=== PATIENT | male | born 1985 | race Caucasian/White ===

== ENCOUNTER 2018-09-22 14:05 | Inpatient (IN) | payer MEDICAID, OTHER ==
[~2018-09-22] VITALS: Ht 190.5 cm; Wt 74.8 kg
[2018-09-22] VITALS (14 sets, daily range): BP systolic 108–164; BP diastolic 58–101
--- NOTE | 2018-09-22 14:12 | NUR ---
PT TRAY FROM [facility]; PER REPORT BS ON SCENE WAS =HI; PT IS AAOX4, DROWSY BUT AROUSABLE, RESPIRATIONS EVEN AND UNLABORED, NO SOB, PT ON MONITOR, NAD NOTED, VSS, PENDING ER PROVIDER EVAL
[2018-09-22] MEDS ORDERED: IV NS 0.9% 1,000 ML BAG IV ONE (14:30)
[2018-09-22 14:36] LABS: BASOPHILS # (AUTO) 0.1 /CMM (0.0-0.2); EOSINOPHILS % (AUTO) 0.3 % (0.0-6.0); HEMATOCRIT 47 % (39-51); HEMOGLOBIN 15.1 g/dL (13.5-17.5); LYMPHOCYTES # (AUTO) 1.3 /CMM (0.8-4.8); MEAN CORPUSCULAR HGB CONC 32 g/dl (31.0-36.0); MEAN CORPUSCULAR VOLUME 100 fL (80-96); MONOCYTES # (AUTO) 0.3 /CMM (0.1-1.30); MONOCYTES % (AUTO) 3.5 % (2.0-12.0); NEUTROPHILS # (AUTO) 6.4 /CMM (1.8-8.9); NEUTROPHILS % (AUTO) 79.2 % (43.0-81.0); PLATELET COUNT (AUTO) 279 /CMM (150-450); RED BLOOD CELL COUNT(AUTO) 4.74 MIL/uL (4.5-6.0)
[2018-09-22 14:43] LABS: ABG BASE EXCESS -18.3 mmol/L; ABG OXYGEN SATURATION 90.4 % (92.0-98.5); ABG PCO2 22.8 mmHg (35.0-45.0); ABG PH 7.178 (7.350-7.450); ABG PO2 71.9 mmHg (75.0-100.0); COHb 0.8 % (0.5-1.5); MetHb 0.6 % (0.0-1.5); O2Hb 89.1 % (94.0-97.0); VENT MODE, BG RA
[2018-09-22 14:46] LABS: CALCIUM, SERUM 9.7 mg/dL (8.5-10.1); CREATININE 1.5 mg/dL (0.6-1.3); POTASSIUM 5.9 mmol/L (3.5-5.1)
[2018-09-22 14:47] LABS: MAGNESIUM 2.2 mg/dL (1.8-2.4); PHOSPHORUS 5.7 mg/dL (2.5-4.9)
[2018-09-22] MEDS ORDERED: METO-357 PO (15:00)
[2018-09-22] MEDS ORDERED: IV NS 0.9% 1,000 ML IV ONE (15:00)
[2018-09-22] MEDS ORDERED: IV LR 1000 ML 1,000 ML IV ONE (15:00)
[2018-09-22] MEDS ORDERED: ASPI-1152 PO (15:00)
[2018-09-22] MEDS ORDERED: INSULIN REGULAR, HUMAN 100 UNIT in IV NS 0.9% 99 ML IV PRN ×4 (15:00→16:30)
[2018-09-22] MEDS ORDERED: LISI-603 PO (15:00)
[2018-09-22] MEDS ORDERED: GABA-534 PO (15:00)
[2018-09-22] MEDS ORDERED: ATOR80TA PO (15:00)
[2018-09-22] MEDS ORDERED: INSU100I26 SQ (15:00)
[2018-09-22] MEDS ORDERED: INSU100I34 SQ (15:00)
--- NOTE | 2018-09-22 15:46 | NUR ---
INSULIN DRIP STARTED, PER DR ALONSO, 0.1U/HR PER KG. STARTED ON 6.7U/HR, BS=HI
[2018-09-22 15:56] LABS: APPEARANCE,URINE Clear (CLEAR); BILIRUBIN,URINE Negative (NEGATIVE); BLOOD, URINE Negative Ery/uL (NEGATIVE); COLOR,URINE Yellow (YELLOW); KETONES,URINE 80 (NEGATIVE); LEUKOCYTE ESTERASE ,URINE Negative (NEGATIVE); NITRITE, URINE Negative (NEGATIVE); PROTEIN,URINE Negative (NEGATIVE); UGLUCOSE 500 MG/DL mg/dL (NEGATIVE); UROBILINOGEN,URINE 0.2 EU/dL (0.2)
--- NOTE | 2018-09-22 16:17 | NUR ---
GOT BED 256
--- NOTE | 2018-09-22 16:23 | NUR ---
REPORT GIVEN TO WILMER PRUITT FOR OLGA
[2018-09-22] MEDS ORDERED: ACETAMINOPHEN 325 MG TABLET PO PRN (16:30)
[2018-09-22] MEDS ORDERED: ONDANSETRON HCL/PF 4 MG/2 ML VIAL IVP PRN (16:30)
--- NOTE | 2018-09-22 16:34 | NUR ---
PT TRANSFERRED TO ICU VIA ACLS PROTOCOL
--- NOTE | 2018-09-22 16:45 | NUR ---
RN NOTES RECEIVED PT FROM ER IN ROOM 256, A/Ox3, PT REFUSED TO ANSWER QUESTIONS AT TIMES , RESPIRATION EVEN AND UNLABORED, ON RA, INSULIN GTT RUNNING PER PROTOCOL , CONTINUE TO MONITOR BLOOD GLUCOSE, R HAND IV SITE G 20 , CLEAN, DRY AND INTACT, NS AT 250CC/HR RUNNING VIA R HAND IV . WOUNDS AND SCABS NOTED ON JOHNNA LOWER EXTRIMITES , PICTURE TAKE AND PLACED IN THE CHART, PT WITHDRAWS TO TOUCH ON JOHNNA LOWER EXTREMITIES, PT STATED IS PAINFUL AND SENSITIVE TO TOUCH , HURL SHAKER AWARE . SR UP x3, CALL LIGHT WITHIN EASY REACH ,BED LOCKED AND IN LOWEST POSITION CONTINUE TO MONITOR.
[2018-09-22] MEDS: IV NS 0.9% 1,000 ML IV SCH ×2 (17:22→20:30)
--- NOTE | 2018-09-22 18:00 | NUR ---
RN NOTES PT REFUSED TO HAVE LE INSERTED AT THIS TIME .
--- NOTE | 2018-09-22 19:00 | NUR ---
RN NOTES INSULIN GTT AT 5.56 UNITS/HR AT THIS TIME, PT STABLE, WILL ENDOSE TO SERVICE CREW LEADER NURSE FOR CONTINUITY OF CARE
--- NOTE | 2018-09-22 20:00 | NUR ---
ULTRASONIC SOLDERER - NOTES - RECEIVED PT IN BED 256, A/Ox3 DROWSY, PT REFUSED TO ANSWER QUESTIONS AT TIMES , RESPIRATION EVEN AND UNLABORED, ON RA, INSULIN GTT RUNNING PER PROTOCOL , CONTINUE TO MONITOR BLOOD GLUCOSE Q1H, R HAND IV SITE G 20 , CLEAN, DRY AND INTACT, NS AT 125 ML/HR RUNNING VIA R HAND IV. WOUNDS AND SCABS NOTED ON JOHNNA LOWER EXTRIMITES. PT WITHDRAWS TO TOUCH ON JOHNNA LOWER EXTREMITIES, SR UP x3, CALL LIGHT WITHIN EASY REACH ,BED LOCKED AND IN LOWEST POSITION CONTINUE TO MONITOR.
[2018-09-22] MEDS: BLOOD SUGAR DIAGNOSTIC 1 EACH STRIP IN SCH ×3 (20:03→22:02)
[2018-09-22] MEDS: ENOXAPARIN SODIUM 40 MG/0.4 ML DISP.SYRIN SQ SCH (20:30)
[2018-09-22 20:41] LABS: CALCIUM, SERUM 8.2 mg/dL (8.5-10.1); CREATININE 1.2 mg/dL (0.6-1.3); MAGNESIUM 1.9 mg/dL (1.8-2.4); PHOSPHORUS 2.6 mg/dL (2.5-4.9)
[2018-09-22] MEDS ORDERED: SULFAMETH/TRIMETH 800/160 MG 1 UDTAB TABLET PO SCH (21:00)
[2018-09-22] MEDS ORDERED: NORMAL SALINE FLUSH 10 ML SYR IV SCH (21:00)
--- NOTE | 2018-09-22 21:00 | NUR ---
PT REFUSES F/C, CAN USE URINAL, GOOD URINE OUTPUT, CLEAR YELLOW
[2018-09-22] MEDS: ATORVASTATIN 40 MG TABLET PO SCH (21:12)
[2018-09-22] MEDS: DOXYCYCLINE HYCLATE (100 MG) 100 MG TABLET PO SCH (21:13)
--- NOTE | 2018-09-22 22:00 | NUR ---
BLOOD GLUCOSE 137, PER ORDER, WILL ORDER STAT BMP TO CHECK ANION GAP, NÉSTOR CAST NOTIFIED
[2018-09-22 22:30] LABS: CALCIUM, SERUM 8.3 mg/dL (8.5-10.1); CREATININE 1.2 mg/dL (0.6-1.3)
--- NOTE | 2018-09-22 22:48 | NUR ---
ANION GAP 14, PER DR CAST, TURN OFF INSULIN GTT, AND START ON CCHO DIET, ACCU Q4 MILD SLIDING SCALE
[2018-09-23] VITALS (45 sets, daily range): BP systolic 88–144; BP diastolic 46–90
[2018-09-23] MEDS: BLOOD SUGAR DIAGNOSTIC 1 EACH STRIP IN SCH ×6 (00:09→21:26)
[2018-09-23 00:59] LABS: CALCIUM, SERUM 8.2 mg/dL (8.5-10.1); CREATININE 1.2 mg/dL (0.6-1.3); MAGNESIUM 1.7 mg/dL (1.8-2.4); PHOSPHORUS 3.2 mg/dL (2.5-4.9); POTASSIUM 4.2 mmol/L (3.5-5.1)
[2018-09-23] MEDS ORDERED: DEXTROSE 50%-WATER 50 ML DISP.SYRIN IV PRN ×3 (01:00→09:30)
[2018-09-23] MEDS ORDERED: INSULIN REGULAR, HUMAN 100 UNIT/ML 3 ML VIAL ONE (01:58)
[2018-09-23] MEDS: INSULIN REGULAR, HUMAN 100 UNIT/ML 3 ML VIAL SQ PRN ×6 (02:02→21:25)
[2018-09-23] MEDS: IV NS 0.9% 1,000 ML IV SCH (04:30)
[2018-09-23 04:45] LABS: BASOPHILS # (AUTO) 0.1 /CMM (0.0-0.2); BASOPHILS % (AUTO) 1.2 % (0.0-2.0); EOSINOPHILS % (AUTO) 2.5 % (0.0-6.0); HEMATOCRIT 40 % (39-51); HEMOGLOBIN 13.6 g/dL (13.5-17.5); LYMPHOCYTES # (AUTO) 2.2 /CMM (0.8-4.8); LYMPHOCYTES % (AUTO) 30.6 % (20.0-44.0); MEAN CORPUSCULAR HGB CONC 34 g/dl (31.0-36.0); MEAN CORPUSCULAR VOLUME 93 fL (80-96); MONOCYTES # (AUTO) 0.4 /CMM (0.1-1.30); MONOCYTES % (AUTO) 5.6 % (2.0-12.0); NEUTROPHILS # (AUTO) 4.4 /CMM (1.8-8.9); NEUTROPHILS % (AUTO) 60.1 % (43.0-81.0); PLATELET COUNT (AUTO) 259 /CMM (150-450); WHITE BLOOD COUNT (AUTO) 7.3 K/uL (4.3-11.0)
[2018-09-23 05:06] LABS: ALBUMIN 3.2 g/dL (3.4-5.0); BILIRUBIN,TOTAL 0.5 mg/dL (0.2-1.0); CALCIUM, SERUM 8.3 mg/dL (8.5-10.1); CREATININE 1.2 mg/dL (0.6-1.3); MAGNESIUM 1.7 mg/dL (1.8-2.4); PHOSPHORUS 2.6 mg/dL (2.5-4.9); TOTAL PROTEIN, SERUM 6.8 g/dL (6.4-8.2)
[2018-09-23 05:12] LABS: THYROID STIMULATING HORMONE 0.261 uIU/mL (0.358-3.74)
--- NOTE | 2018-09-23 06:13 | NUR ---
PT WOKE UP AND USED TO COMMODE 2 TIMES, PT HAD 2 BMS LARGE BROWN FORMED. NO COMPLAINT OF PAIN, NO NAUSEA
[2018-09-23] MEDS ORDERED: INSULIN ASPART/LISPRO 100 UNIT/ML CARTRIDGE SQ STA (08:16)
--- NOTE | 2018-09-23 08:19 | NUR ---
ON 8 AM ASSESSMENT PT FOUND TO BE VERY LETHARGIC, ABUSABLE TO REPEATED PAILFUL STIMULI. BS 358, BMP AND GLUCOSE STAT OBTAINED BY LAB. DHARA BAIG NOTIFIED WILL GIVE 10 LISPRO NOW. AND CHANGE TO MODERATE SS.
[2018-09-23 08:21] LABS: CREATININE 1.1 mg/dL (0.6-1.3); MAGNESIUM 1.6 mg/dL (1.8-2.4); PHOSPHORUS 2.2 mg/dL (2.5-4.9)
[2018-09-23] MEDS ORDERED: INSULIN REGULAR, HUMAN 100 UNIT/ML 3 ML VIAL SQ PRN (08:30)
[2018-09-23] MEDS ORDERED: LISINOPRIL (20MG) 20 MG TABLET PO SCH (09:00)
[2018-09-23] MEDS ORDERED: GABAPENTIN 300 MG CAPSULE PO SCH (09:00)
[2018-09-23] MEDS ORDERED: BLOOD SUGAR DIAGNOSTIC 1 EACH STRIP IN SCH (09:00)
--- NOTE | 2018-09-23 09:00 | NUR ---
PT REMAINS LETHARGIC ACCU CHEK 338 16 UNITS OF REGULAR INSULIN ADMINISTERED QS. DHARA UPDATED ON LABS AND PT CONDITION.
--- NOTE | 2018-09-23 10:30 | NUR ---
PT AWAKE ALERT FOLLOWS COMMANDS. BREAKFAST INTAKE 100%. MEDICATIONS ADMINISTERED.
[2018-09-23] MEDS: PANTOPRAZOLE 40 MG VIAL IV SCH (10:39)
[2018-09-23] MEDS: METOPROLOL SUCCINATE 50 MG TAB.SR.24H PO SCH (10:40)
[2018-09-23] MEDS: LISINOPRIL (20MG) 20 MG TABLET PO SCH (10:40)
[2018-09-23] MEDS: ASPIRIN EC 81 MG TABLET.DR PO SCH (10:40)
[2018-09-23] MEDS: NICOTINE PATCH (14MG) 14 MG PATCH.TD24 TD SCH (10:41)
[2018-09-23] MEDS: DOXYCYCLINE HYCLATE (100 MG) 100 MG TABLET PO SCH (10:41)
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
[2018-09-23] MEDS: NEUTRA PHOS 1 POWD.PACKET PO SCH ×2 (13:09→17:17)
[2018-09-23] MEDS ORDERED: LIDOCAINE 1% INJ 50 ML MDV IJ STA (13:58)
[2018-09-23] MEDS ORDERED: MORPHINE SULFATE INJ 2 MG/ML DISP.SYRIN IV ONE (14:30)
--- NOTE | 2018-09-23 15:40 | NUR ---
PAM received a call from pt's RN Alda informing SW that pt. would like to speak with her. PAM met with pt. bedside. Pt. informed SW that he had initiated the process with [facility] for drug treatment program and wanted to ask SW to call them. Pt's drug of choice is methamphetamines. PAM called [facility] and spoke to Consuelo in intake who informed SW that pt. will have to call [facility] himself. PAM contacted ICU CRN and gave her the contact number to [facility] and requested for pt. to call.
--- NOTE | 2018-09-23 15:45 | NUR ---
debridement completed by DR Maguire. Pt premedicated with 2mg morphine iv. pt tolerated procedure well.
[2018-09-23] MEDS: MAGNESIUM OXIDE 400 MG TABLET PO SCH (17:17)
[2018-09-23] MEDS: HYDROCODONE/APAP 5/325MG 1 EACH TABLET PO PRN (18:55)
[2018-09-23] MEDS ORDERED: FEE PK DOSING 1 MIN EA MC ONE (19:35)
--- NOTE | 2018-09-23 19:36 | NUR ---
RN NOTES RECEIVED PT ASLEEP ON BED ALERT ORIENTED ON ROOM AIR SATURATION 98% NSR ON TELE MONITOR. NO ACUTE RESPIRATORY DISTRESS. BLOOD SUGAR CONTINUE TO MONITOR DUE TO DKA. IV SITE ON RIGHT HAND G 20 INTACT AND PATENT S/P INSULIN DRIP. PATIENT IS INDEPENDENT W/ BED MOBILITY. PT. HAD S/P DEBRIDEMENT TODAY, MULTIPLE ABRASION PRESENT. OFFLOADED EXT WITH PILLOWS. ENCOURAGED TO USED CALL LIGHT FOR ASSISTANCE AND SAFETY. KEPT PT CLEAN AND COMFORTABLE IN BED. WILL CLOSELY MONITOR.
[2018-09-23] MEDS: VANCOMYCIN 1 GM in IV D5W 250 ML IV SCH (20:06)
[2018-09-23] MEDS: ENOXAPARIN SODIUM 40 MG/0.4 ML DISP.SYRIN SQ SCH ×3 (21:00→21:27)
[2018-09-23] MEDS: ATORVASTATIN 40 MG TABLET PO SCH (21:13)
--- NOTE | 2018-09-23 21:32 | NUR ---
RN NOTES PATIENT REFUSED LOVENOX. EXPLAINED THE RISK AND BENEFITS. PT IS AOX3 ABLE TO VERBALIZED UNDERSTANDING. OFFERED X2, INEFFECTIVE
[2018-09-24] VITALS (38 sets, daily range): BP systolic 87–125; BP diastolic 42–72
[2018-09-24] MEDS: BLOOD SUGAR DIAGNOSTIC 1 EACH STRIP IN SCH ×6 (01:11→20:57)
[2018-09-24] MEDS: INSULIN REGULAR, HUMAN 100 UNIT/ML 3 ML VIAL SQ PRN ×6 (01:12→21:02)
[2018-09-24] MEDS: VANCOMYCIN 1 GM in IV D5W 250 ML IV SCH ×3 (03:36→21:04)
[2018-09-24 04:24] LABS: BASOPHILS # (AUTO) 0.1 /CMM (0.0-0.2); BASOPHILS % (AUTO) 0.6 % (0.0-2.0); EOSINOPHILS % (AUTO) 2.2 % (0.0-6.0); HEMATOCRIT 37 % (39-51); HEMOGLOBIN 12.9 g/dL (13.5-17.5); LYMPHOCYTES # (AUTO) 2.5 /CMM (0.8-4.8); LYMPHOCYTES % (AUTO) 30.5 % (20.0-44.0); MEAN CORPUSCULAR HGB CONC 35 g/dl (31.0-36.0); MEAN CORPUSCULAR VOLUME 92 fL (80-96); MONOCYTES # (AUTO) 0.4 /CMM (0.1-1.30); MONOCYTES % (AUTO) 5.1 % (2.0-12.0); NEUTROPHILS % (AUTO) 61.6 % (43.0-81.0); PLATELET COUNT (AUTO) 227 /CMM (150-450); WHITE BLOOD COUNT (AUTO) 8.1 K/uL (4.3-11.0)
[2018-09-24 04:31] LABS: CALCIUM, SERUM 7.9 mg/dL (8.5-10.1); MAGNESIUM 1.7 mg/dL (1.8-2.4); PHOSPHORUS 2.1 mg/dL (2.5-4.9); POTASSIUM 3.3 mmol/L (3.5-5.1)
--- NOTE | 2018-09-24 06:43 | NUR ---
RN NOTES PATIENT ASLEEP WELL AT NIGHT. NO ACUTE RESPIRATORY DISTRESS. AFEBRILE. VSS STABLE THROUGHOUT THE SHIFT. BS CONTINUE TO MONITOR INSULIN PER SLIDING SCALE GIVEN ORDERED. PATIENT IS MORE ALERT AND COOPERATIVE TODAY. PATIENT IS KEEP ASKING FOOD WHEN AWAKE. IV SITE KEPT INTACT AND PATENT. KEPT PT CLEAN AND COMFORTABLE IN BED. CALL LIGHT KEPT WITHIN EASY REACH WILL ENDORSED CONTINUITY OF CARE TO AM NURSE.
--- NOTE | 2018-09-24 07:52 | NUR ---
WOUND CARE CONSULT WOUND CARE RECEIVED CONSULT FOR JOHNNA TOES AND LEFT HEEL WOUND. WOUND CARE WILL DEFER CONSULT AND TREATMENT PLANS TO DPM DR GIMENEZ WHO IS CURRENTLY FOLLOWING THIS PATIENT. PATIENT WITH LENCOH AT 20, WILL SEE PRN.
[2018-09-24] MEDS ORDERED: NEUTRA PHOS 1 POWD.PACKET PO ONE (09:00)
--- NOTE | 2018-09-24 09:00 | NUR ---
Duplicate order for Mag, and Nutraphos. Pharmacy contacted ok to give Mag iv and Magoxide po, ok to dc duplicate nutraphos order.
[2018-09-24] MEDS: Magnesium 1GM/D5W 100ML PREMIX 100 ML IV SCH ×2 (09:26→10:25)
[2018-09-24] MEDS: NICOTINE PATCH (14MG) 14 MG PATCH.TD24 TD SCH (09:27)
[2018-09-24] MEDS: ASPIRIN EC 81 MG TABLET.DR PO SCH (09:28)
[2018-09-24] MEDS: PANTOPRAZOLE 40 MG VIAL IV SCH (09:28)
[2018-09-24] MEDS: LISINOPRIL (20MG) 20 MG TABLET PO SCH (09:29)
[2018-09-24] MEDS: METOPROLOL SUCCINATE 50 MG TAB.SR.24H PO SCH (09:29)
[2018-09-24] MEDS: MAGNESIUM OXIDE 400 MG TABLET PO SCH ×2 (09:39→17:23)
[2018-09-24] MEDS: NEUTRA PHOS 1 POWD.PACKET PO SCH (09:39)
[2018-09-24] MEDS: HYDROCODONE/APAP 5/325MG 1 EACH TABLET PO PRN (10:24)
--- NOTE | 2018-09-24 13:00 | NUR ---
Dr Martini is here to see pt. wound dressed with hydrogel and mepilex.
[2018-09-24] MEDS: HYDROGEL DRESSING 90 GM TUBE TP SCH (14:01)
--- NOTE | 2018-09-24 18:00 | NUR ---
MS CLIENT COORDINATOR NOTES RECEIVED TRANSFER FROM ICU ROOM 256 TO ROOM 310-2 AND REPORT FROM DIMITRIS,SECURITIES CONSULTANT.PT IS ALERT AND ORIENTED X4. VERBALLY RESPONSIVE. WITH RT SIDE WEAKNESS.BUT ABLE TO MOVE BUE WITH RLE WEAKNESS. S/P LT HEEL DEBRIDEMENT BY DR GIMENEZ 09/23/18.FOR P.T. EVAL. PROVIDED FWW TO THE PT DURING PT EVAL. DENIES ANY PAIN OR DISTRESS.WITH GOOD APPETITE.ATE 100% DINNER AND 100% EXTRA SUGAR FREE SNACKS AFTER DINNER. ORIENTED TO HIS NEW ROOM AND THE USE OF CALL LIGHT.CALL LIGHT PLACED WITHIN REACH.
--- NOTE | 2018-09-24 18:00 | NUR ---
Pt transferred to room 310-2 report to to WILMER Azul. belongings with pt.
[2018-09-24] MEDS ORDERED: POTASSIUM CHLORIDE 20 MEQ TAB.PRT.SR PO SCH (18:30)
--- NOTE | 2018-09-24 19:16 | NUR ---
SEEN BY CARLOS A SPARKS RESPITE PROVIDER WITH ORDERS FOR BACTROBAN CHIRAG AND PLACED PT ON CONTACT ISOLATION PRECAUTIONS FOR MRSA NARES. PT TEACHING FOR MRSA NARES PROVIDED TO THE PT.
--- NOTE | 2018-09-24 19:30 | NUR ---
MS RAGHU INITIAL NOTES RECEIVED REPORT FROM AM NURSE CRISTOBAL AND CHECKED THE PT HE;S AWAKE AND ALERT WATCHING TV AT THIS TIME. DENIES ANY PAIN OR ANY DISCOMFORT. HE ONLY STATED HE'S ONLY STATED HES' HUNGRY. OFFERED SANDWICH AND JUICE. DRESSING ON HIS LEFT FOOT DRY AND INTACT. OFFLOAD BILATERAL FOOT ON PILLOWS. RE-ORIENTED WHERE HE AT NOW AND ENCOURAGED HIM TO USED THE CALL LIGHT IF HE NEEDS SOME HELP.ISOLATION PRECAUTION IMPLEMENTED AND OBSERVED. PLACE CALL LIGHT AT REACH. WILL CONTINUE MONITORING.
[2018-09-24] MEDS: MUPIROCIN OINT 2% 22 GM TUBE SCH (20:59)
[2018-09-24] MEDS: ENOXAPARIN SODIUM 40 MG/0.4 ML DISP.SYRIN SQ SCH ×2 (21:00→21:10)
--- NOTE | 2018-09-24 21:00 | NUR ---
MS SURVEYOR GEODETIC NOTES BLOOD SUGAR CHECKED DONE 202, 8 UNITS OF INSULIN GIVEN JUDITH SQ AND ROUTINE MEDS GIVEN WELL EXCEPT LOVENOX EVEN I EXPLAINED TO HIM THE PURPOSE AND BENEFIT OF IT HE STILL INSISTED "NO ". NO SIGNS OF ANY ACUTE AND DISCOMFORT AT THIS TIME. WILL CONTINUE MONITORING. PLACE CALL LIGHT AT REACH.
[2018-09-24] MEDS: ATORVASTATIN 40 MG TABLET PO SCH (21:06)
--- NOTE | 2018-09-24 22:15 | NUR ---
MS RAGHU NOTES RE-ASSESSED PT FOR HIS PAIN, SEEN SLEEPING AT THIS TIME. NO SIGNS OF ANY ACUTE DISTRESS NOTED. RESPIRATION EVEN AND UN-LABORED. KEPT HIM WARM AND COMFORTABLE AT ALL TIMES. PLACE CALL LIGHT AT REACH.
[2018-09-25] MEDS: BLOOD SUGAR DIAGNOSTIC 1 EACH STRIP IN SCH ×6 (01:12→20:00)
[2018-09-25] MEDS: INSULIN REGULAR, HUMAN 100 UNIT/ML 3 ML VIAL SQ PRN ×3 (01:14→21:41)
--- NOTE | 2018-09-25 01:21 | NUR ---
MS WELDER FITTER ARC NOTES BLOOD SUGAR 332, 16 UNITS OF INSULIN GIVEN JUDITH SQ ORDERED. NO SIGNS OF HYPER GLYCEMIA NOTED. PT AWAKE AND ALERT DENIES ANY PAIN OR ANY DISCOMFORT. WILL CONTINUE MONITORING. PLACE CALL LIGHT AT REACH.
[2018-09-25] MEDS: VANCOMYCIN 1 GM in IV D5W 250 ML IV SCH ×3 (04:00→19:58)
[2018-09-25 07:05] LABS: CALCIUM, SERUM 7.9 mg/dL (8.5-10.1); CREATININE 0.7 mg/dL (0.6-1.3); POTASSIUM 3.8 mmol/L (3.5-5.1)
--- NOTE | 2018-09-25 07:38 | NUR ---
HEAD OF DIGITAL ADVERTISING & INTEGRATION CLOSING NOTES PT RESTING COMFORTABLY IN BED WITHOUT ANY DISCOMFORT NOTED. BLOOD SUGAR AROUND 5 AM 156, NO COVERAGES GIVEN . NO SIGNS OF HYPO GLYCEMIA NOTED. ALL DUE MEDS GIVEN AND ALL NEEDS MET. KEPT HIM WARM AND COMFORTABLE AT ALL TIMES. PLACE CALL LIGHT AT REACH. ENDORSE TO AM NURSE FOR CONTINUITY OF CARE.
[2018-09-25 08:00] VITALS: BP 125/71
--- NOTE | 2018-09-25 08:00 | NUR ---
MS WILMER AM NOTES RECEIVED PT AWAKE AND ALERT WATCHING TV AT THIS TIME. DENIES ANY PAIN OR ANY DISCOMFORT. DRESSING ON HIS LEFT FOOT DRY AND INTACT. OFFLOAD BILATERAL FOOT ON PILLOWS. ENCOURAGED HIM TO USED THE CALL LIGHT IF HE NEEDS SOME HELP.ISOLATION PRECAUTION IMPLEMENTED AND OBSERVED. PLACE CALL LIGHT AT REACH. WILL CONTINUE MONITORING.
[2018-09-25] MEDS: LISINOPRIL (20MG) 20 MG TABLET PO SCH (09:05)
[2018-09-25] MEDS: NICOTINE PATCH (14MG) 14 MG PATCH.TD24 TD SCH (09:05)
[2018-09-25] MEDS: ASPIRIN EC 81 MG TABLET.DR PO SCH (09:05)
[2018-09-25] MEDS: PANTOPRAZOLE 40 MG VIAL IV SCH (09:05)
[2018-09-25] MEDS: METOPROLOL SUCCINATE 50 MG TAB.SR.24H PO SCH (09:05)
[2018-09-25] MEDS: MUPIROCIN OINT 2% 22 GM TUBE SCH ×2 (09:06→20:00)
[2018-09-25] MEDS: MAGNESIUM OXIDE 400 MG TABLET PO SCH (09:07)
[2018-09-25] MEDS: HYDROGEL DRESSING 90 GM TUBE TP SCH (10:09)
--- NOTE | 2018-09-25 11:01 | NUR ---
BLOOD SUGAR WAS 492 AT 1009-NOTIFIED DR CAST WITH ORDER TO ADMINISTER HUMULIN R 20 UNITS AND RECHECKED AFTER 30 MINS,BLOOD SUGAR IS 408.DR CAST MADE AWARE.PT STATED THAT HE IS GETTING LANTUS 30 UNITS BID AT HOME.DR CAST MADE AWARE.DIABETIC TEACHING DONE REGARDING DIETARY INTAKE.PT LOVES TO EAT SUGAR FREE SNACKS OFTEN.WILL CONTINUE TO MONITOR.
--- NOTE | 2018-09-25 11:30 | NUR ---
PT HAS BEEN REFUSING TO AMBULATE WITH P.T. SAYING THAT HE HAS RLE WEAKNESS AND THAT HIS LT HEEL HURTS INSPITE OF INSTRUCTING TO USE FWW-PT INSISTS TO REFUSE.OFFERED PAIN MED PO BUT PT STILL INSISTS TO REFUSE TO WORK WITH P.T.-NOTIFIED YOUTH SERVICES LIBRARIAN,SHILO.
[2018-09-25 15:59] VITALS: BP 104/66
--- NOTE | 2018-09-25 16:57 | NUR ---
RESOURCE DIRECTOR CAME TO SEE AND ASSESSED THE PT. PT VERBALIZED THAT HE REFUSED LOVENOX AND NOT NORCO PRIOR TO P.T. TX. PT HAS NO LOVENOX SCHEDULED DURING THE DAY SHIFT.IT IS ADMINISTERED IN THE PSYCHIATRIC ORDERLY. OFFERED NORCO EARLIER PRIOR TO P.T. EVAL BEFORE P.T STAFF LEAVES. BUT PT STATED THAT HE CAN'T WALK AT ALL DUE TO HIS RLE WEAKNESS AND LT HEEL S/P DEBRIDEMENT WOUND CONDITION.
[2018-09-25] MEDS: INSULIN ASPART/LISPRO 100 UNIT/ML CARTRIDGE SQ SCH (17:30)
[2018-09-25] MEDS: HYDROCODONE/APAP 5/325MG 1 EACH TABLET PO PRN (18:45)
--- NOTE | 2018-09-25 19:03 | NUR ---
PT REQUESTED TO HAVE HIS BLOOD SUGAR CHECKED WITH 143 RESULT.PT KEEPS ASKING FOR SNACKS LIKE MARGARITO CRACKERS AND PEANUT BUTTER SANDWICH.DIABETIC DIET TEACHING REINFORCED DUE TO HIS BLOOD SUGAR GETTING OUT OF CONTROL DUE HIS LOVE FOR SNACKS.INSTRUCTED THAT HE HAS LATE NIGHT SNACKS PREPARED BY THE DIETARY.CALL LIGHT PLACED WITHIN REACH.
[2018-09-25 20:00] VITALS: BP 99/65
[2018-09-25] MEDS: ENOXAPARIN SODIUM 40 MG/0.4 ML DISP.SYRIN SQ SCH (20:31)
[2018-09-25] MEDS: ATORVASTATIN 40 MG TABLET PO SCH (21:41)
[2018-09-25] MEDS ORDERED: INSULIN GLARGINE, 100 UNIT/ML CARTRIDGE SQ SCH (22:00)
[2018-09-26] MEDS: INSULIN REGULAR, HUMAN 100 UNIT/ML 3 ML VIAL SQ PRN ×5 (00:57→16:55)
[2018-09-26] MEDS: BLOOD SUGAR DIAGNOSTIC 1 EACH STRIP IN SCH ×5 (00:58→16:56)
[2018-09-26] MEDS: VANCOMYCIN 1 GM in IV D5W 250 ML IV SCH ×2 (04:45→11:47)
--- NOTE | 2018-09-26 06:42 | NUR ---
MS RN NOTES AWAKE & RESPONSIVE. NOT IN ANY DISTRESS. NO SOB NOTED. DENIES ANY PAIN OR DISCOMFORT AT THIS TIME. WITH IV-HL PATENT & INTACT. MONITORED ACCORDINGLY. CALL LIGHT WITHIN REACH. BED IN LOWEST POSITION. SR UP X 2 FOR SAFETY. WILL ENDORSE TO NEXT SHIFT.
[2018-09-26 07:15] LABS: CALCIUM, SERUM 8.3 mg/dL (8.5-10.1); CREATININE 0.8 mg/dL (0.6-1.3); POTASSIUM 3.5 mmol/L (3.5-5.1)
[2018-09-26] MEDS: INSULIN ASPART/LISPRO 100 UNIT/ML CARTRIDGE SQ SCH ×3 (07:30→16:56)
--- NOTE | 2018-09-26 07:30 | NUR ---
MS RN OPENING NOTES RECEIVED PT RESTING IN BED. A/O X 4 ON ROOM AIR, WITHOUT ANY SIGNS OF RESPIRATORY DISTRESS. ON IV HEP LOCK TO LFA 20G, PATENT AND INTACT. ON ACCUCHECK AND INSULIN PER SLIDING SCALE. KEPT PT COMFORTABLE, BED IN LOW LOCKED POSITION SR X2. WILL CONTINUE TO MONITOR.
[2018-09-26 08:00] VITALS: BP 97/67
[2018-09-26] MEDS: NICOTINE PATCH (14MG) 14 MG PATCH.TD24 TD SCH (08:54)
[2018-09-26] MEDS: ASPIRIN EC 81 MG TABLET.DR PO SCH (08:54)
[2018-09-26] MEDS: PANTOPRAZOLE 40 MG VIAL IV SCH (08:55)
[2018-09-26] MEDS: LISINOPRIL (20MG) 20 MG TABLET PO SCH (08:55)
[2018-09-26 08:56] VITALS: BP 97/67
[2018-09-26] MEDS: METOPROLOL SUCCINATE 50 MG TAB.SR.24H PO SCH (08:56)
[2018-09-26] MEDS: HYDROCODONE/APAP 5/325MG 1 EACH TABLET PO PRN (08:57)
[2018-09-26] MEDS: MUPIROCIN OINT 2% 22 GM TUBE SCH (09:22)
[2018-09-26] MEDS: HYDROGEL DRESSING 90 GM TUBE TP SCH (09:55)
--- NOTE | 2018-09-26 13:31 | NUR ---
RN NOTES PATIENT NOTED WITH IV ACCESS ON LFA INFILTRATED, NEW PIV INSERTED TO ROSCOE G#20 THEN SECURED WITH TAPE AND DATED. WILL CONTINUE TO MONITOR.
--- NOTE | 2018-09-26 15:13 | NUR ---
PAM and geriatric case manager Alexis and RN Harshad met with pt. bedside to discuss discharge plan. Pt. is alert and oriented x4. Pt. is much more cooperative than he has been the previous days. PAM informed pt. she will complete the [place] Referral eligibility form and email it to [email or web address]. Pt. accepted for SW to send referral. PAM completed referral eligibility form for [facility] and sent the application to [email or web address] Pt. is willing to go to the [facility] program [phone]. PAM provided pt.with the [facility] list and citrus picker locations. Pt. was also provided with Homeless Penitentiary resource directory from [facility], list of mental health clinics and substance abuse programs. Homeless Patient Waiver Form was signed by the pt. and placed in pt's chart. PAM also gave pt. TAP card. Pt. to have early dinner prior to discharge. Signed Homeless patient form and copy of completed [place] [facility] referral eligibility application was placed in pt's chart. No other social service needs are requested at this time. SW is available, if needed.
--- NOTE | 2018-09-26 16:22 | NUR ---
RN NOTES PATIENT TAUGHT PRIOR TO DISCHARGE HOW TO DO WOUND CARE TREATMENT ON HIS LEFT HEEL WOUND AND VERBALIZED UNDERSTANDING. WOUND SUPPLIES PROVIDED.
--- NOTE | 2018-09-26 17:20 | NUR ---
MS TRAILER BODY ASSEMBLER NOTES PATIENT DISCHARGE TO [facility] ([facility] IN STABLE CONDITION. TAP CARD PROVIDED FOR TRANSPORTATION. A/O X4; SIGNED AND STATED UNDERSTANDING OF DISCHARGE INSTRUCTIONS GIVEN. ALL BELONGINGS ACCOUNTED FOR AND SIGNED FORM. WOUND PICTURES TAKEN AND FILED ON THE CHART. VS STABLE, IN NO ACUTE SIGNS OF DISTRESS. HEALTH TEACHINGS GIVEN AND VERBALIZED UNDERSTANDING. PIV TO RIGHT UPPER ARM REMOVED, WITH NO BLEEDING NOTED. PT LEFT THE UNIT AT 1705 VIA WHEELCHAIR ACCOMPANIED BY RNS; FWW PROVIDED. MD AND CHARGE NURSE AWARE OF DISCHARGE.
[2018-09-26] MEDS ORDERED: SULFAMETH/TRIMETH 800/160 MG 1 UDTAB TABLET PO SCH (21:00)
== END 2018-09-26 17:00 | disposition home or self-care (01) | DRG 420 ==
LOC: ER 14:08 → ICU 16:20 → MED 09-24 17:41
PROVIDERS: ADMIT Registered Nurse; ATTEND Nurse Practitioner Acute Care
PROC: 0JBR0ZZ Excision of Left Foot Subcutaneous Tissue and Fascia, Open Approach (ICD-10-PCS; principal; 2018-09-23)
PROC: B54MZZA Ultrasonography of Right Upper Extremity Veins, Guidance (ICD-10-PCS; 2018-09-26)
PROC: 05HB33Z Insertion of Infusion Device into Right Basilic Vein, Percutaneous Approach (ICD-10-PCS; 2018-09-26)
PROC: 3E0336Z Introduction of Nutritional Substance into Peripheral Vein, Percutaneous Approach (ICD-10-PCS; 2018-09-26)
DX: E11.10 Type 2 diabetes mellitus with ketoacidosis without coma (principal); N17.0 Acute kidney failure with tubular necrosis; G93.41 Metabolic encephalopathy; E44.1 Mild protein-calorie malnutrition; L03.116 Cellulitis of left lower limb; E83.39 Other disorders of phosphorus metabolism; E83.42 Hypomagnesemia; L97.429 Non-pressure chronic ulcer of left heel and midfoot with unspecified severity; Z59.0 Homelessness; Z68.1 Body mass index [BMI] 19.9 or less, adult; E11.621 Type 2 diabetes mellitus with foot ulcer; Z79.82 Long term (current) use of aspirin; Z79.4 Long term (current) use of insulin; Z79.899 Other long term (current) drug therapy; Z91.19 Patient's noncompliance with other medical treatment and regimen; Z91.14 Patient's other noncompliance with medication regimen; F41.9 Anxiety disorder, unspecified; F19.10 Other psychoactive substance abuse, uncomplicated; Z86.73 Personal history of transient ischemic attack (TIA), and cerebral infarction without residual deficits; F17.200 Nicotine dependence, unspecified, uncomplicated; F32.9 Major depressive disorder, single episode, unspecified; E87.1 Hypo-osmolality and hyponatremia; Z88.0 Allergy status to penicillin; E11.69 Type 2 diabetes mellitus with other specified complication; M86.9 Osteomyelitis, unspecified; E87.5 Hyperkalemia; E83.51 Hypocalcemia; E87.6 Hypokalemia; I25.2 Old myocardial infarction; Z89.422 Acquired absence of other left toe(s); Z86.14 Personal history of Methicillin resistant Staphylococcus aureus infection
CPT/HCPCS: 36415; 36569; 36600; 73630-TC; 80048-TC; 80053-TC; 80061-TC; 80202-TC; 81000-TC; 82803-TC; 82962-TC; 83605-TC; 83735-TC; 84100-TC; 84443-TC; 85025-TC; 85652-TC; 87070-TC; 87081-TC; 97116-TC; 97530-TC; A4216; A6248; A6403; C9113; G0378; J1650; J1815; J2270; J3370; J3475; J3490; J7030; J7050; J7060; J7120